=== PATIENT | female | born 1990 | race African-American/Black ===

== ENCOUNTER 2024-02-23 17:02 | Emergency (ER) | payer SELFPAY ==
[2024-02-23 17:06] VITALS: BP 146/81
--- NOTE | 2024-02-23 17:11 | ED.GENMED ---
History of Present Illness
General
Chief Complaint: Skin Problem
Source: patient
Exam Limitations: none
Time Seen by Provider: 02/23/24 17:25
History of Present Illness
History of Present Illness:
33yoF with a history of asthma presenting for evaluation after a cat scratch earlier today. 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 She is unsure of
the cat's vaccination status. She is presenting with a minor scratch to the left lateral lower leg. Unknown last Tdap. No other complaints.
Phy Exam
General Physical Exam
General Presentation: well appearing, no apparent distress and mild distress
General age: appears stated age
General Skin: warm and dry
General Habitus: normal
General Mental: alert
ENT Exam
ENT Exam: normocephalic
Pulmonary Exam
Pulmonary Exam: no respiratory distress
Neurological Exam
Neurological Exam: alert
Revloc Coma Scale
Eye Opening: Spontaneous
Verbal Response: Oriented
Motor Response: Obeys Commands
GCS Total Score: 15
Musculoskeletal Exam
Musculoskeletal Exam: other (Minor cat scratch noted to L lateral lower leg. No surrounding tenderness. )
Skin Exam
Skin Exam: normal color and warm/dry
Psychiatric Exam
Psychiatric Exam: normal mood/affect
Course
Orders/Labs/Results
Orders:
Orders
02/23/24 17:13
Tetanus/Diphth/Acelpertussis [Adacel] 0.5 ml IM .ONCE ONE
Vital Signs
Initial and Last Documented VS:
Initial Vital Signs
Temp Pulse Resp BP Pulse Ox
98.2 F 78 20 146/81 99
02/23/24 17:06 02/23/24 17:06 02/23/24 17:06 02/23/24 17:06 02/23/24 17:06
Last Documented Vital Signs
Temp Pulse Resp BP Pulse Ox
98.2 F 78 20 146/81 99
02/23/24 17:06 02/23/24 17:06 02/23/24 17:06 02/23/24 17:06 02/23/24 17:06
MDM/Problems Addressed
Differential Diagnosis Includes:
33yoF here after a cat scratch. Scratched by a cat while visiting someone's home for her work. Unknown vaccination status of cat but cat is indoors and domesticated. 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 Animal bite form completed and
faxed by registration. Will defer rabies vaccinations at this time and await assessment by the health department. Tdap updated and she was started on Augmentin for infection prophylaxis. Strict ED return precautions discussed including signs of
infection and if the animal dies/cannot be reliably followed. She expressed understanding and is in agreement with plan. She was discharged in stable condition.
*Critical Care Note
Total Time (30-74mins, 75-104mins- exclusive of procedures): Not Applicable
ED Attending Note
-
Portions of this chart may have been created with voice recognition software.� Occasional wrong word or��sound alike� substitutions may have occurred due to the inherent limitations of voice recognition software.
Discharge Plan
Departure
Patient Disposition: Home (Routine Discharge)
Date of Disposition: 02/23/24
Time of Disposition: 17:33
Patient with high blood pressure during this ER visit?: Yes
Discharge Problem:
Cat scratch of left lower leg
Instructions: Animal Bites ED
Prescriptions:
New
amoxicillin-pot clavulanate 875-125 mg tablet
1 tab PO BID Qty: 14 0RF
Activity Restrictions/Additional Instructions:
Take antibiotics as prescribed. Please follow up with [facility] ([phone]) regarding the rabies status of the cat.
Return to the ER with any signs of infection.
Interventions
Interventions:
*Risk Screen - Suicide Last Done: 02/23/24 18:12
*General Assessment Last Done: 02/23/24 17:06
*Neglect/Abuse Screening Last Done: 02/23/24 17:36
*ED COVID-19 Vaccine History Last Done: 02/23/24 17:36
*Nursing Disposition Last Done: 02/23/24 18:12
ED-Skin Assessment Last Done: 02/23/24 17:48
Discharge Date and Time
Discharge Date/Time: 02/23/24 18:24
Print Language: [place]
[2024-02-23] MEDS: ADACEL 0.5 ML IM (17:37)
== END 2024-02-23 18:24 | disposition home or self-care (01) ==
LOC: EMR 17:02
PROVIDERS: EMERGENCY PHYSICIAN Emergency Medicine
DX: S80.812A Abrasion, left lower leg, initial encounter (principal); W55.03XA Scratched by cat, initial encounter; J45.909 Unspecified asthma, uncomplicated; Z23 Encounter for immunization
CPT/HCPCS: 99282; 90471; 90715